=== PATIENT | female | born 1955 | race African-American/Black ===

== ENCOUNTER → 2020-07-13 | Emergency (ER) | payer MEDICARE, MEDICAID ==
[~2020-07-13] VITALS: Ht 167.6 cm; Wt 99.8 kg
[~2020-07-13] MED LIST: BENAZEPRIL HCL5 MG ORAL; CYCLOBENZAPRINE10 MG ORAL; CYMBALTA30 MG ORAL; ECOTRIN81 MG ORAL; GABAPENTIN400 MG ORAL; GEMFIBROZIL600 MG ORAL; GLIPIZIDE5 MG ORAL; GLUCOPHAGE500 MG ORAL; HYDROCHLOROTHIA25 MG ORAL; HYDROCODON-ACE1 EA15 ORAL; KEFLEX500 MG ORAL; LEVEMIR FL100 UNIT/1 SUBQ; LOTENSIN40 MG ORAL; METFORMIN HCL500 M1 ORAL; NEURONTIN300 MG ORAL; NORCO 5-325 TA1 EACH ORAL; NORCO1 E1 ORAL; NORVASC5 MG ORAL; NOVOLOG100 UNITS1 SUBQ
[2020-07-13 16:50] VITALS: BP 167/80
--- NOTE | 2020-07-13 17:09 | NUR ---
pt came into ED after neuropathic pain has not subsided. pain is 6/10 and in lower back and legs. legs swollen at +2. pt states she has not been able to get to her primary doctor.
[2020-07-13] MEDS: HYDROcodone/Acetamin 5/325 tab ORAL ONE (17:16)
[2020-07-13 17:22] VITALS: BP 141/79
--- NOTE | 2020-07-13 17:22 | Emergency Room Report ---
History of Present Illness General Chief Complaint: Back Pain-No Injury Source: Patient Present Illness HPI Patient is a 65-year-old female presents for increased right-sided back pain. Patient had prior history of chronic pain after previous CVA. She denies any new weakness. Denies any fever. Reports having pain as well as numbness to the right side of her leg. Denies any recent trauma. No vomiting or diarrhea. No recent injuries. Patient previously been taking pain medications for this however had not been able to to see her doctor. Allergies: Coded Allergies: No Known Allergies (Unverified , 12/05/13) COVID-19 Screening Contact w/high risk pt: No Experienced COVID-19 symptoms?: No COVID-19 Testing performed [employer]: Yes COVID-19 Screening: Negative COVID-19 COVID-19 Testing Source: hospital Patient History Past Medical History: see triage record Last Menstrual Period: na Reviewed Nursing Documentation: PMH: Agreed; PSxH: Agreed Nursing Documentation-PMH Past Medical History: No History, Except For Hx Cardiac Problems: Yes Hx Hypertension: Yes Hx Diabetes: Yes Hx Cancer: No Hx Gastrointestinal Problems: No Hx Neurological Problems: No Review of Systems All Other Systems: negative except mentioned in HPI Physical Exam Vital Signs Date Time Temp Pulse Resp B/P (MAP) Pulse Ox O2 Delivery O2 Flow Rate FiO2 07/13/20 16:50 98.2 88 20 167/80 (109) 98 Room Air General Appearance: well appearing, no apparent distress, alert, GCS 15 Head: normocephalic, atraumatic ENT: hearing grossly normal, normal voice Neck: full range of motion, supple Respiratory: no respiratory distress, speaking full sentences Cardiovascular #1: normal inspection, edema Musculoskeletal: normal inspection Neurologic: alert, motor strength/tone normal, oriented x3, normal gait Psychiatric: mood/affect normal Skin: no rash Medical Decision Making Diagnostic Impression: Primary Impression: Exacerbation of chronic back pain ER Course Patient presents for increased right-sided lower extremity pain. Differential diagnosis include was not limited to neuropathy, arthritis among others. Patient has a benign exam and does not appear to require any imaging or laboratory testing at this time. Patient appears to have longstanding pain which appears to be related to previous CVA. There is no evidence of vascular compromise to her extremities. Brisk pulses and good cap refill. Patient given prescription for pain medications. She is advised to follow-up with her primary care physician for any further medications. Patient is advised to seek emergency care if she had a worsening condition or any new concerns. This medical record is generated with [employer] vocational placement specialist software. There may be some vocational placement specialist discrepancies related to use of this software Last Vital Signs Date Time Temp Pulse Resp B/P (MAP) Pulse Ox O2 Delivery O2 Flow Rate FiO2 07/13/20 16:50 98.2 88 20 167/80 (109) 98 Room Air Status: improved Disposition: HOME, SELF-CARE Condition: Stable Scripts Gabapentin* (GABAPENTIN*) 400 Mg Capsule 400 MG ORAL TWICE A DAY, #10 CAP 0 Refills Prov: Ernie Cunningham MD 07/13/20 Hydrocodone/Acetaminophen 5-325* (HYDROCODONE/ACETAMINOPHEN 5-325*) 1 Each Tablet 1 TAB ORAL Q6H PRN for For Pain, #10 TAB 0 Refills Prov: Ernie Cunningham MD 07/13/20 Patient Instructions: Neuropathic Pain Additional Instructions: Follow up with your primary care physician for recheck in the next 2-3 days. Seek emergency care if any new pain, weakness or other new concerns. Ernie Cunningham MD Jul 13, 2020 17:22
--- NOTE | 2020-07-13 17:25 | NUR ---
discharge medication gone over and given to pt. pt acknowledged to get to her primary within 2-3 days. pt walked out of ED with steady gait and drove off in a private vehicle.
== END | disposition home or self-care (01) ==
LOC: EMR 17:13
DX: M54.9 Dorsalgia, unspecified (principal); G89.29 Other chronic pain; Z86.73 Personal history of transient ischemic attack (TIA), and cerebral infarction without residual deficits; I10 Essential (primary) hypertension; E11.9 Type 2 diabetes mellitus without complications
CPT/HCPCS: 99282